=== PATIENT | male | born 1950 | race Caucasian/White ===

== ENCOUNTER 2018-08-19 04:59 | Outpatient (CLI) | payer BC ==
[2018-08-20 10:20] LABS: Hemoglobin 14.5 g/dL (14.0-18.0); Mean Corpuscular HGB CONC 33.2 g/dL (32.0-36.0); Mean Corpuscular Hemoglobin 31.3 pg (27.0-31.0); Mean Corpuscular Volume 94.2 fL (78.0-98.0); Mean Platelet Volume 8.8 fL (7.4-10.4); Platelet Count 119 thou/uL (130-400); RBC Distribution Width 12.6 % (11.5-14.5); Red Blood Cell (RBC) Count 4.64 mill/uL (4.70-6.10); White Blood Cell (WBC) Count 6.2 thou/uL (4.8-10.8)
[2018-08-20 10:26] LABS: INR-International Normal Ratio 2.3; PTT 46.5 SEC (22.9-36.1); Prothrombin Time 24.9 SEC (12.0-14.7)
[2018-08-20 10:51] LABS: Anion Gap 15 mmol/L (10-20); BUN (Urea Nitrogen) 22 mg/dL (8.4-25.7); Calc. Creatinine Clearance 0 mL/min (70-130); Calcium 9.2 mg/dL (7.8-10.44); Carbon Dioxide 23 mmol/L (23-31); Chloride 109 mmol/L (98-107); Estimated GFR-MDRD 88; Glucose 133 mg/dL (80-115); Potassium 4.5 mmol/L (3.5-5.1); Sodium 142 mmol/L (136-145)
== END 2018-08-19 05:00 | disposition home or self-care (01) ==
LOC: LABBT 04:59
PROVIDERS: ATTEND Internal Medicine Cardiovascular Disease
DX: Z01.818 Encounter for other preprocedural examination (principal); I48.91 Unspecified atrial fibrillation; I48.92 Unspecified atrial flutter
CPT/HCPCS: 80048; 85027; 85610; 85730; 93005; 93010

== ENCOUNTER 2018-08-22 05:54 | Observation (INO) | payer BC ==
[2018-08-22] MEDS ORDERED: Heparin 10,000 UNITS/1 ML VIAL ONE ×2 (06:44→08:28)
[2018-08-22 06:52] LABS: INR-International Normal Ratio 1.2; PTT 33.9 SEC (22.9-36.1)
[2018-08-22] MEDS ORDERED: Fentanyl 100 MCG/2 ML VIAL ONE ×2 (06:55→12:34)
[2018-08-22] MEDS ORDERED: Midazolam HCl 2 mg/2 ml Vial ONE (07:47)
[2018-08-22] MEDS ORDERED: Protamine Sulfate 50 MG/5 ML VIAL ONE (08:28)
[2018-08-22] MEDS ORDERED: Hydrocortisone Sod Succ/PF 100 mg/2 ml Vial ONE (08:29)
[2018-08-22] MEDS ORDERED: Heparin 25,000 units/D5W 500 ML ONE (09:19)
[2018-08-22] MEDS ORDERED: Isoproterenol 0.2 MG/1 ML AMP ONE (09:20)
[2018-08-22 12:37] VITALS: BMI 32.1
[2018-08-22] MEDS ORDERED: ALPRAZolam 0.5 MG TAB PO PRN (12:43)
[2018-08-22] MEDS ORDERED: Acetaminophen/Codeine 30-300mg Tablet PO PRN ×2 (12:45)
--- NOTE | 2018-08-22 13:42 | OP ---
DATE OF PROCEDURE: 08/22/2018 PROCEDURE PERFORMED: Electrophysiology study and radiofrequency ablation. REASON FOR PROCEDURE: Mr. Quintanilla is a 67-year-old man with a history of atrial fibrillation/flutter on his chores with increasing palpitations, baseline bradycardia with difficulty to control palpitation symptoms. The patient prefers no long-term antiarrhythmic, which is typical choice due to his bradycardia as well. The patient is anticoagulated with Xarelto. DESCRIPTION OF PROCEDURE: The patient received propofol by Anesthesia specialist. After adequate level of sedation achieved, a standard left and right femoral venous prep was performed. The left and right femoral veins were accessed using ultrasound guidance and a multipurpose needle. On the left side, an 11-Armenian sheath was used to advance the intracardiac echocardiogram probe, which was used to monitor transeptal procedure and hemo-dynamics throughout the procedure. On the left side, a Preface catheter was advanced and that later advanced to DuoDeca catheter into the coronary sinus and the right atrial position. On the right side, two 8-Armenian short sheath was introduced initially through which a ThermoCool SFST catheter was advanced to the right atrium. 3D map of the right atrium was obtained. His bundle and CS were delineated. Burst atrial pacing was performed, able to induce the atrial fibrillation, which later deteriorated atrial flutter. Atrial flutter appeared to have a typical isthmus dependent morphology with proximal to distal CS activation and burst atrial pacing terminated the atrial flutter. Caval tricuspid isthmus ablation was performed, and we achieved transisthmus block with the transisthmus time extended to over 180 milliseconds with longest transisthmus time adjacent to the ablation line suggestive of block. Following that, a transseptal puncture was performed, exchanged right femoral venous sheath to a [place] 45-degree angle transseptal sheath. IV heparin was administered at this point, and ACT was checked throughout the procedure to achieve ACT over 350 throughout the IV heparin boluses and drip. The initial transseptal sheath was cannulated with a wire and it was pulled back , and the second transseptal puncture was performed with the same [place]cano transseptal sheath under fluoroscopic and intracardiac ultrasound guidance. Through the wire, an Agilis sheath was advanced to the left atrium. Through these sheaths, a 20- pole Lasso catheter and the ThermoCool SFST catheter were advanced to the left atrium. 3D map of the left atrium was obtained revealing mild scarring only. A standard pulmonary venous isolation procedure was performed isolating all 4 pulmonary veins. Also, excellent groove and inferior wall ablations were performed to achieve a posterior wall block, which was somewhat suboptimal due to heating over the esophagus. At this point, burst atrial pacing maneuvers were performed, and we did not induce further atrial arrhythmias. Isuprel was administered at this time, and no significant PACs were observed. The pulmonary veins were rechecked and gently ablated. On the right side, also the cavotricuspid isthmus was rechecked and re-ablated. At the end of the case, cardiac silhouette did not seem to change. Sheaths were exchanged to a short sheath and a basket closure was performed under ultrasound guidance. The total number of ablations, 38 ablations with total duration of 26 minutes 56 seconds at 40 barrera. Basic EP study was also performed with baseline rhythm of sinus rhythm at 1355 milliseconds, NJ 114, QRS 90, QT 423, AH 90 milliseconds, HV 39 milliseconds. Sinus node recovery time 1323 corrected to 100 milliseconds with AV Wenckebach cycle length was 360 milliseconds. AV savi ERP was 690/240 milliseconds. Retrograde Wenckebach cycle was 300 milliseconds during LV pacing. Concentric retrograde VA conduction was seen. No definite dual AV node physiology was observed, initially atrial flutter, again typical as detailed above was induced. In the end of the case no atrial flutter was induced. CONCLUSION: 1. Inducible atrial flutter fibrillation and flutter both. 2. Atrial flutter likely typical isthmus dependent morphology. 3. Radiofrequency ablation of the cavotricuspid isthmus was performed admitting transisthmus conduction. 4. Standard pulmonary venous isolation and posterior wall ablation performed as above. PLAN: Resume anticoagulation. Monitor for recurrent arrhythmias. Job ID: [id number] [facility]
[2018-08-22] MEDS ORDERED: Dexamethasone 20 MG/5 ML VIAL ONE (15:00)
[2018-08-22] MEDS ORDERED: Ondansetron PF 4 MG/2 ML Vial ONE (15:00)
[2018-08-22] MEDS ORDERED: Lidocaine 1% PF 5 ML VIAL ONE (15:00)
[2018-08-22] MEDS ORDERED: PROPOFOL 200 MG/20 ML VIAL ONE (15:00)
[2018-08-22] MEDS ORDERED: Glycopyrrolate 0.2 MG/ML 5 ML SYRINGE ONE (15:00)
[2018-08-22] MEDS ORDERED: ePHEDrine 50 MG/ML VIAL ONE (15:00)
[2018-08-22] MEDS ORDERED: Heparin 30,000 units/30 ml VIAL ONE (15:00)
[2018-08-22] MEDS ORDERED: Rocuronium Bromide 10 MG/ML (10ML VIAL) ONE (15:00)
[2018-08-22] MEDS ORDERED: diphenhydrAMINE 50 MG/ML VIAL ONE (15:00)
[2018-08-22] MEDS ORDERED: PHENYLEPHRINE-NS 100 MCG/ML 10 ML SYRINGE ONE (15:00)
[2018-08-22] MEDS: Sucralfate 1 GM TAB PO SCH ×2 (17:10→20:20)
[2018-08-22] MEDS ORDERED: Escitalopram Oxalate 20 mg Tablet PO SCH (21:00)
[2018-08-22] MEDS ORDERED: Mirtazapine 15 MG TAB PO SCH (21:00)
[2018-08-23] MEDS ORDERED: Levothyroxine Sodium 25 MCG TAB PO SCH (06:00)
[2018-08-23] MEDS ORDERED: Levothyroxine Sodium 25 MCG TAB ONE (06:10)
[2018-08-23] MEDS ORDERED: Rivaroxaban 10 MG TAB PO SCH (09:00)
[2018-08-23] MEDS ORDERED: Rosuvastatin 10 MG TAB PO SCH (09:00)
[2018-08-23 09:09] VITALS: BP 110/61; TEMP 97.4
[2018-08-23] MEDS: Sucralfate 1 GM TAB PO SCH (10:00)
--- NOTE | 2018-08-24 03:06 | DIS ---
DATE OF ADMISSION: 08/22/2018 DATE OF DISCHARGE: 08/23/2018 DIAGNOSIS: Atrial fibrillation and atrial flutter. PROCEDURE PERFORMED: Includes electrophysiology study and radiofrequency ablation, 26 minutes of RF energy lesions delivered. The patient was inducible for both atrial fibrillation and atrial flutter. He underwent cavotricuspid isthmus modification ablation for his typical atrial flutter and also isolation of the 4 pulmonary veins in posterior wall. He has done well since his ablation without any complications or medical instability. He is ambulating. Groin sites are stable. He is tolerating p.o. intake. His vital signs are stable. He is not having shortness of breath or chest pain. SUBJECTIVE: Denies heart racing, palpitations, chest pain, pressure, syncope, near syncope, stroke, stroke-like symptoms, nausea, vomiting, diarrhea, bleeding in the groin sites. OBJECTIVE: VITAL SIGNS: Temperature 97.4, pulse 67, blood pressure 110/61, respirations 15, oxygen is 96% on room air. GENERAL: The patient is alert and oriented. Speech is clear. Affect is appropriate. NECK: Supple without jugular venous distention. LUNGS: Clear to auscultation. HEART: Rate is irregular with crisp S1 and S2. ABDOMEN: Soft, nontender without palpable masses. Bilateral groin sites are stable without hematoma or bleeding complications. EXTREMITIES: Warm and dry to touch without clubbing, cyanosis, or edema. NEUROLOGIC: Grossly intact. DATABASE: EKG and telemetry show sinus rhythm. There have been no episodes of atrial fibrillation, atrial flutter or even atrial ectopy seen. DISCHARGE INSTRUCTIONS: The patient received detailed packet from [facility], post ablation instructions. Stressed the importance of no lifting more than 5 to 10 pounds for the next week. No soaking baths. Light activity only for 7 days, then may resume gradually and as tolerated. He will follow up in 6 weeks for routine appointment or sooner if symptoms dictate. DISCHARGE MEDICATIONS: 1. Rosuvastatin 10 mg daily. 2. Xarelto 20 mg q.p.m. 3. Mirtazapine 1 tab q.p.m. 4. Metoprolol succinate 25 mg q.a.m. 5. Synthroid 25 mcg daily. 6. Lexapro 20 mg q.p.m. 7. Xanax 0.5 mg t.i.d. p.r.n. New prescriptions; 1. Sucralfate 1 g p.o. before meals and at bedtime x2 weeks. 2. Pantoprazole 40 mg p.o. daily x30 days. 3. Lasix 40 mg p.o. p.r.n. shortness of breath. 4. Potassium chloride 20 mEq p.o. p.r.n. to be taken only with Lasix as needed. CONDITION AT DISCHARGE: Stable. Job ID: [id number] [facility]
== END 2018-08-23 10:48 | disposition home or self-care (01) ==
LOC: CCL 05:54 → 2SW 12:24
PROVIDERS: ADMIT Internal Medicine Cardiovascular Disease; ATTEND Internal Medicine Cardiovascular Disease
PROC: 4A023FZ Measurement of Cardiac Rhythm, Percutaneous Approach (ICD-10-PCS; principal; 2018-08-23)
PROC: 4A0234Z Measurement of Cardiac Electrical Activity, Percutaneous Approach (ICD-10-PCS; 2018-08-23)
PROC: 02583ZZ Destruction of Conduction Mechanism, Percutaneous Approach (ICD-10-PCS; 2018-08-23)
DX: I48.0 Paroxysmal atrial fibrillation (principal); I48.92 Unspecified atrial flutter; E03.9 Hypothyroidism, unspecified; E78.00 Pure hypercholesterolemia, unspecified; F41.9 Anxiety disorder, unspecified; G47.30 Sleep apnea, unspecified; Z79.899 Other long term (current) drug therapy
CPT/HCPCS: 76942; 85347; 85610; 85730; 93005; 93010; 93613; 93621; 93623; 93653; 93656; 93662; C1731; C1732; C1759; C1769; G0378; J1100; J1200; J1644; J1720; J2001; J2250; J2405; J2704; J2720; J3010; J3490

== ENCOUNTER 2019-02-11 09:36 | Outpatient (CLI) | payer BC ==
--- NOTE | 2019-02-11 10:19 | RAD ---
Abdomen 2 views HISTORY: Abdominal pain. Diarrhea. FINDINGS: Gas and stool over the colon and rectum. No differential air-fluid levels or evidence of fr ee subdiaphragmatic gas. There are degenerative changes of the hips and lumbar spine. IMPRESSION: No abnormalities are demonstrated.
== END 2019-02-11 09:37 | disposition home or self-care (01) ==
LOC: BICRAD 09:36
PROVIDERS: ATTEND Internal Medicine
DX: R19.7 Diarrhea, unspecified (principal)
CPT/HCPCS: 36415; 74019; 80053; 80061; 81001; 83036; 83540; 84439; 84443; 85025

== ENCOUNTER 2019-04-08 06:45 | Outpatient (CLI) | payer BC ==
[2019-04-08 16:28] LABS: INR-International Normal Ratio 1.4; PTT 33.8 SEC (22.9-36.1); Prothrombin Time 16.6 SEC (12.0-14.7)
[2019-04-08 16:29] LABS: Hemoglobin 13.6 g/dL (14.0-18.0); Mean Corpuscular HGB CONC 32.8 g/dL (32.0-36.0); Mean Corpuscular Volume 91.5 fL (78.0-98.0); Mean Platelet Volume 8.5 fL (7.4-10.4); Platelet Count 118 thou/uL (130-400); RBC Distribution Width 12.5 % (11.5-14.5); Red Blood Cell (RBC) Count 4.52 mill/uL (4.70-6.10); White Blood Cell (WBC) Count 6.7 thou/uL (4.8-10.8)
[2019-04-08 16:40] LABS: Anion Gap 10 mmol/L (10-20); BUN (Urea Nitrogen) 19 mg/dL (8.4-25.7); Calc. Creatinine Clearance 0 mL/min (70-130); Calcium 8.9 mg/dL (7.8-10.44); Carbon Dioxide 25 mmol/L (23-31); Chloride 109 mmol/L (98-107); Estimated GFR-MDRD Greater than 90; Glucose 134 mg/dL (80-115); Potassium 4.2 mmol/L (3.5-5.1); Sodium 140 mmol/L (136-145)
== END 2019-04-08 06:46 | disposition home or self-care (01) ==
LOC: LABBT 06:45
PROVIDERS: ATTEND Internal Medicine Cardiovascular Disease
DX: Z01.818 Encounter for other preprocedural examination (principal); I48.91 Unspecified atrial fibrillation
CPT/HCPCS: 80048; 85027; 85610; 85730; 93005; 93010

== ENCOUNTER 2019-04-11 09:20 | Observation (INO) | payer BC ==
[2019-04-08 15:49] VITALS: BMI 32.1
[2019-04-11] MEDS ORDERED: PROPOFOL 200 MG/20 ML VIAL ONE (10:51)
[2019-04-11] MEDS ORDERED: Dexamethasone 20 MG/5 ML VIAL ONE (10:51)
[2019-04-11] MEDS ORDERED: Rocuronium Bromide 10 MG/ML (10ML VIAL) ONE (10:51)
[2019-04-11] MEDS ORDERED: Ondansetron PF 4 MG/2 ML Vial ONE (10:51)
[2019-04-11] MEDS ORDERED: Heparin 10,000 UNITS/1 ML VIAL ONE ×2 (11:22→13:33)
[2019-04-11] MEDS ORDERED: Heparin (Artline) 1,000 ML ONE (11:23)
[2019-04-11] MEDS ORDERED: Heparin (Artline) 500 ML ONE ×2 (11:23→14:16)
[2019-04-11] MEDS ORDERED: Lidocaine 1% (PF) 30 ML VIAL ONE (11:23)
[2019-04-11] MEDS ORDERED: Isoproterenol 0.2 MG/1 ML AMP ONE (11:23)
[2019-04-11] MEDS ORDERED: Fentanyl 100 MCG/2 ML VIAL ONE ×2 (11:57→15:44)
[2019-04-11] MEDS ORDERED: Phenylephrine HCL 10 MG/ML VIAL ONE (11:58)
[2019-04-11] MEDS ORDERED: Heparin 25,000 units/D5W 500 ML ONE (12:03)
[2019-04-11] MEDS ORDERED: Protamine Sulfate 50 MG/5 ML VIAL ONE (15:04)
[2019-04-11] MEDS ORDERED: ALPRAZolam 0.5 MG TAB PO PRN (16:26)
[2019-04-11] MEDS ORDERED: HYDROcodone/Acetaminophen 5/325 mg Tablet PO PRN ×2 (16:30)
[2019-04-11] MEDS ORDERED: Acetaminophen/Codeine 30-300mg Tablet PO PRN ×2 (16:30)
[2019-04-11] MEDS ORDERED: Rivaroxaban 10 MG TAB PO SCH (18:00)
--- NOTE | 2019-04-11 19:46 | CON ---
DATE OF CONSULTATION: 04/11/2019 TIME OF ASSESSMENT: 1800 hours. REASON FOR CONSULTATION: Medical management. HISTORY OF PRESENT ILLNESS: Mr. Quintanilla is a 68-year-old gentleman who has a history of atrial fibrillation/atrial flutter, who has undergone radiofrequency ablation earlier today. He is being kept for continuous cardiac monitoring/observation overnight. The patient denies having any complaints at this present time. He is found eating dinner without any associated nausea or vomiting. Denies having any chest pain, palpitations, or shortness of breath. No headaches or dizziness. All other review of systems are negative. PAST MEDICAL HISTORY: 1. Atrial flutter/atrial fibrillation. 2. LVEF 55% to 60% with no significant valvular heart disease on echo done in April 2018. 3. Negative stress test in February 2016. 4. Hypothyroidism. 5. On chronic anticoagulation with Xarelto. 6. Sleep apnea, on CPAP. 7. Hypercholesterolemia. 8. Anxiety. PAST SURGICAL HISTORY: 1. Ankle surgery. 2. Radiofrequency ablation, 04/11/2019. 3. Previous RFA in August 2018 for typical atrial flutter. SOCIAL HISTORY: The patient reports drinking one alcoholic beverage a day. Denies any tobacco use. ALLERGIES: NO KNOWN DRUG ALLERGIES. CURRENT MEDICATIONS: 1. Ascorbic acid. 2. Cholecalciferol. 3. Flecainide. 4. Levothyroxine. 5. Metoprolol. 6. Mirtazapine. 7. Multivitamin. 8. [place]-3 fatty acids/fish oil. 9. Xarelto. 10. Rosuvastatin. 11. Sertraline. 12. Xanax. PHYSICAL EXAMINATION: GENERAL: The patient appears well-developed, well-nourished, is in no acute distress. VITAL SIGNS: Temperature 98.6, pulse 50, respirations 16, O2 saturation 97%, and blood pressure 146/77. HEENT: Normocephalic and atraumatic. Pupils are equal, round, and reactive to light. Sclerae without icterus. Oropharynx is clear. NECK: Supple. LUNGS: Clear to auscultation bilaterally without any wheezes, rales, or rhonchi. CARDIAC: Regular rate and rhythm without audible murmurs, rubs, or gallops. ABDOMEN: Soft, nontender, nondistended. Normoactive bowel sounds present. No guarding or rigidity. No renal angle tenderness. EXTREMITIES: No lower leg swelling or edema. NEUROLOGIC: Alert and oriented x3. SKIN: Warm and dry. IMPRESSION AND PLAN: Mr. Quintanilla is a 68-year-old gentleman who is status post radiofrequency ablation for atrial fibrillation, who has been referred to us for medical management of the following. 1. Hypothyroidism. Levothyroxine has been restarted. 2. Hyperlipidemia. Home medications restarted. 3. Obstructive sleep apnea. The patient does not have CPAP with him, does not know settings. Currently on 2 L of oxygen by nasal cannula. 4. Anxiety/depression. Home medication restarted. 5. Gastrointestinal prophylaxis with famotidine. 6. Deep venous thrombosis prophylaxis. The patient is on chronic anticoagulation with Xarelto. 7. Code status full. Surrogate decision maker is his , Karishma Quintanilla. 8. Atrial fibrillations, status post radiofrequency ablation. Continue management and disposition as per Dr. Alvarado. The patient's case was discussed with attending who agrees upon care as described above. We will continue to follow this patient with you. Thank you for this consultation. Job ID: [id number]
[2019-04-11] MEDS ORDERED: Mirtazapine 30 MG TAB PO SCH (21:00)
[2019-04-11] MEDS ORDERED: ALPRAZolam 0.25 MG TAB PO PRN (21:24)
[2019-04-11] MEDS: Famotidine 20 MG TAB PO SCH (21:39)
--- NOTE | 2019-04-11 22:09 | OP ---
DATE OF PROCEDURE: 04/11/2019 PROCEDURE PERFORMED: Electrophysiology study and radiofrequency ablation. ADDITIONAL REFERRING PHYSICIAN: Melanie Talley MD. REASON FOR PROCEDURE: Mr. Quintanilla is a 68-year-old gentleman with history of paroxysmal atrial fibrillation and flutter, history of pulmonary venous isolation procedure on 08/12/2018, history of preserved LVEF, it is 55% to 60% by 2D echocardiogram in April 2018. He had recurrent palpitations with admission and marked bradycardia was noted on metoprolol and flecainide. He is here for a redo-pulmonary venous isolation procedure. DESCRIPTION OF PROCEDURE: The patient received general anesthesia by Anesthesia specialist. After adequate level of sedation achieved, the left and right femoral venous area was prepped, draped, and anesthetized using subcutaneous lidocaine. Under ultrasound guidance, both femoral veins were cannulated x2 on the left side, an 11-Khmer sheath was used to advance an intracardiac echocardiogram probe to the right atrium to monitor the transeptal procedure, pericardial space and the catheter manipulation. Also on the left side, a Preface sheath was used to advance a duo-Deca catheter in the right atrium in CS position. Following that, on the right side two 8-Khmer short sheaths were introduced through which a ThermoCool SFST catheter advanced to the right atrium and 3D map of the right atrium, His bundle and CS positions were delineated. Following that, the right-sided sheaths were exchanged to SL1 transeptal sheath. IV heparin was initiated with a bolus and then drip fashion and adjusted throughout the procedure to keep ACT over 350. Transseptal puncture was performed with the help of a [place] powered needle under intracardiac ultrasound and fluoroscopic guidance. Through the SL1 sheaths, a ThermoCool SFST ablation catheter was advanced to the left atrium. Also, a 20-pole Lasso catheter was advanced to the left atrium. A 3D map of the left atrium was obtained. Baseline EP study was performed with the following findings. Baseline rhythm was sinus rhythm with cycle length 420 milliseconds, UT 134, QRS 43 milliseconds, QT 474 milliseconds, HV 42 milliseconds. Sinus node recovery time was normal, atrial ERP was 600/280 milliseconds. AV Wenckebach cycle length was 380 milliseconds. Retrograde Wenckebach cycle length was from LV pacing was 400 milliseconds. Reconnection on the right inferior, right superior and left superior veins were seen. Also the posterior wall not completely isolated. Radiofrequency ablation lesions delivered a total of 39 lesions at total duration 16 minutes at 40 barrera delivered to achieve isolation of all 4 pulmonary veins as well as the posterior wall. At the end of the case, High dose Isuprel stanrted and any reconnections were re-ablated. No atrial arrhythmias were inducible. No significant PAC burden was seen on Isuprel. Catheter was withdrawn from the left atrium and heparin was stopped. The long sheaths were exchanged for short sheaths and Vascade closure was performed in all 4 vascular access sites. A protime was also delivered before this reversed IV heparin effect. The cardiac silhouette did not change significantly throughout the procedure and an intracardiac ultrasound demonstrated no significant pericardial effusion pre and post procedure. CONCLUSION: 1. Reconnection of the right sided pulmonary veins were seen with successful re-isolation. Additional lesions delivered in the left superior pulmonary venous areas in a posterior wall achieving re-isolation. 2. No evidence of accessory pathway. 3. Normal atrioventricular savi and His-Purkinje function pre and post procedure. 4. No re-inducible atrial arrhythmias. PLAN: Resume anticoagulation and monitor for recurrent atrial arrhythmias. Stop flecainide. Job ID: [id number] [facility]
[2019-04-12 05:22] LABS: #Basophils 0.1 thou/uL (0.0-0.2); #Lymphocytes 0.7 thou/uL (1.20-3.40); #Monocytes 0.5 thou/uL (0.11-0.59); #Neutrophils 8.8 thou/uL (1.40-6.50); %Basophils 0.6 % (0.0-1.0); %Eosinophils 0.1 % (0.0-10.0); %Lymphocytes 6.6 % (21.0-51.0); %Monocytes 5.1 % (0.0-10.0); %Neutrophils 87.6 % (42.0-75.0); Hemoglobin 13.1 g/dL (14.0-18.0); Mean Corpuscular HGB CONC 31.4 g/dL (32.0-36.0); Mean Corpuscular Volume 92.4 fL (78.0-98.0); Mean Platelet Volume 9.1 fL (7.4-10.4); Platelet Count 135 thou/uL (130-400); RBC Distribution Width 12.6 % (11.5-14.5); Red Blood Cell (RBC) Count 4.52 mill/uL (4.70-6.10)
[2019-04-12 05:43] LABS: Anion Gap 12 mmol/L (10-20); BUN (Urea Nitrogen) 17 mg/dL (8.4-25.7); Calc. Creatinine Clearance 145 mL/min (70-130); Calcium 8.8 mg/dL (7.8-10.44); Carbon Dioxide 24 mmol/L (23-31); Chloride 108 mmol/L (98-107); Estimated GFR-MDRD Greater than 90; Glucose 168 mg/dL (80-115); Potassium 4.3 mmol/L (3.5-5.1); Sodium 140 mmol/L (136-145)
[2019-04-12] MEDS ORDERED: Levothyroxine Sodium 25 MCG TAB PO SCH (06:00)
[2019-04-12] MEDS: Famotidine 20 MG TAB PO SCH (08:39)
[2019-04-12] MEDS ORDERED: Ascorbic Acid 500 mg Chewable Tablet PO SCH (09:00)
[2019-04-12] MEDS ORDERED: Rivaroxaban 10 MG TAB PO SCH (09:00)
[2019-04-12] MEDS ORDERED: Fish Oil 1,000 MG CAP PO SCH (09:00)
[2019-04-12] MEDS ORDERED: Multivit, Therapeutic 1 TAB PO SCH (09:00)
[2019-04-12] MEDS ORDERED: Rosuvastatin 20 MG TAB PO SCH (09:00)
[2019-04-12 12:11] VITALS: BP 139/69; TEMP 97.3
[2019-04-12] MEDS ORDERED: Alprazolam [Xanax Xr] 0.5 MG PO SCH (21:00)
--- NOTE | 2019-04-12 23:53 | DIS ---
DATE OF ADMISSION: 04/11/2019 DATE OF DISCHARGE: 04/12/2019 REASON FOR HOSPITALIZATION: Elective ablation of atrial fibrillation. SIGNIFICANT FINDINGS: The patient is found to be in atrial fibrillation, who required radiofrequency ablation. PROCEDURES PERFORMED AND TREATMENTS RENDERED: The patient was taken to the operating room by Dr. Alvarado on 04/11/2019-please see full operative report for details. The patient successfully underwent electrophysiology study with radiofrequency ablation. There was no appreciated intraoperative or postoperative complications. The patient was monitored on continuous telemetry postoperatively and had a good recovery. The patient's cardiac regimen was titrated appropriately by cargo service agent. The patient was recommended safe for discharge by cargo service agent on 04/12/2019 with close followup in the outpatient setting. CONDITION ON DISCHARGE: Stable. SPECIFIC INSTRUCTIONS FOR THE PATIENT/FAMILY: 1. The patient is recommended to take all medications as directed. 2. The patient is recommended to follow up with Cardiology in the next 1 to 2 weeks. 3. The patient is recommended to follow up with primary care physician in the next 1 to 2 weeks. 4. The patient is recommended to return to acute care hospital immediately if signs or symptoms return, worsen, or any other new symptoms occur. DISCHARGE MEDICATIONS: Please see full discharge medication list for details. 1. Xarelto 20 mg one tablet p.o. at bedtime. 2. Rosuvastatin 20 mg one tablet p.o. daily. 3. Sertraline 100 mg p.o. at bedtime. 4. Xanax 0.25 mg p.o. t.i.d. p.r.n. panic attack. 5. [place]-3 fatty acids. 6. Fish oil 1000 mg one capsule p.o. daily. 7. Multivitamin one tablet p.o. daily. 8. Mirtazapine 30 mg one tablet p.o. at bedtime. 9. Synthroid 25 mcg one tablet p.o. q.a.m. 10. Vitamin D3 of 1000 units one tablet p.o. daily. 11. Vitamin C 1000 units one tablet p.o. daily. Greater than 35 minutes spent coordinating care and discharge process for this patient. Job ID: [id number]
--- NOTE | 2019-04-15 10:55 | PRG ---
DATE OF SERVICE: 04/12/2019 SUBJECTIVE: Mr. Quintanilla seems to be doing very well after his pulmonary venous re-isolation procedure yesterday. He has no chest pain. No fever, chills, or cough. Groin sites are without reaction and there is no palpitation. OBJECTIVE DATA: VITAL SIGNS: Blood pressure is 139/69, heart rate 51, respirations 16, and temperature 97.3 degrees Fahrenheit. GENERAL: Alert and oriented man, with elevated BMI, in no apparent distress. NECK: Supple. Jugular veins not distended. CHEST: Coarse without crackles. HEART: Sounds are regular to rate and rhythm. No murmur, gallop, or rub is appreciated. ABDOMEN: Benign. Bowel sounds positive. EXTREMITIES: Lower extremity without edema, clubbing, or cyanosis. Both femoral venous catheter insertion sites are without reaction. LABORATORY AND DIAGNOSTIC STUDIES: Database, telemetry strips reviewed revealing sinus rhythm without atrial fibrillation or significant ectopy. EKG from April 12, 2019, reveals sinus bradycardia 47 beats per minute. LABORATORY DATA: Hemoglobin is 13.1, white cells 10, platelet count is 135. Electrolytes normal range. BUN is 17 and creatinine 0.77. ASSESSMENT AND PLAN: Mr. Quintanilla is a pleasant 68-year-old man with prior history of paroxysmal atrial fibrillation, who had prior pulmonary venous isolation procedure on 08/12/2018 and had recurrent paroxysms and eventually underwent redo-pulmonary venous isolation procedure yesterday. He had re-isolation of the right-sided pulmonary veins. Also, additional lesions were placed in the superior and inferior lines on the posterior wall to re-isolate the posterior wall as well. A total of 60 minutes of radiofrequency energy was delivered at 40 barrera. No issues were noted. Subsequent day, the patient is stable. Rhythm remained sinus bradycardia. PLAN: Discussed with Dr. Dunn about discharge. He appears to be stable. I will discharge him on a routine 2 week supply of Protonix and Carafate, also p.r.n. Lasix and potassium. He is to stop his flecainide and metoprolol at this time asymptomatic bradycardia. Routine followup in 6 weeks will be arranged. The patient is encouraged for a followup with any kind of new issues, which I educated him about. Job ID: [id number]
== END 2019-04-12 13:51 | disposition home or self-care (01) ==
LOC: CCL 09:20 → 2SW 17:19
PROVIDERS: ADMIT Internal Medicine Cardiovascular Disease; ATTEND Internal Medicine Cardiovascular Disease
PROC: 02583ZZ Destruction of Conduction Mechanism, Percutaneous Approach (ICD-10-PCS; principal; 2019-04-12)
DX: I48.0 Paroxysmal atrial fibrillation (principal); I48.92 Unspecified atrial flutter; E03.9 Hypothyroidism, unspecified; G47.33 Obstructive sleep apnea (adult) (pediatric); F41.9 Anxiety disorder, unspecified; E78.5 Hyperlipidemia, unspecified; F32.9 Major depressive disorder, single episode, unspecified; Z79.01 Long term (current) use of anticoagulants; Z79.899 Other long term (current) drug therapy; Z99.89 Dependence on other enabling machines and devices
CPT/HCPCS: 36415; 76942; 80048; 85025; 85347; 93005; 93010; 93613; 93623; 93656; 93662; C1731; C1732; C1759; C1769; G0378; J1100; J1644; J2001; J2370; J2405; J2704; J2720; J3010

== ENCOUNTER 2019-12-10 07:20 | Outpatient (CLI) | payer BC, OTHER ==
[2019-12-10 11:17] LABS: Hemoglobin 14.6 g/dL (14.0-18.0); Mean Corpuscular HGB CONC 34.2 g/dL (32.0-36.0); Mean Corpuscular Volume 93.7 fL (78.0-98.0); Mean Platelet Volume 8.6 fL (7.4-10.4); Platelet Count 121 thou/uL (130-400); RBC Distribution Width 12.6 % (11.5-14.5); Red Blood Cell (RBC) Count 4.56 mill/uL (4.70-6.10); White Blood Cell (WBC) Count 5.1 thou/uL (4.8-10.8)
[2019-12-10 11:27] LABS: PTT 28.8 sec (22.9-36.1); Prothrombin Time 13.5 sec (12.0-14.7)
[2019-12-10 11:59] LABS: Bacteria/HPF None Seen HPF (None Seen); Bilirubin Negative (Negative); Blood, Urine Negative (Negative); Clarity Clear (Clear); Glucose, Urine (Dipstick) Normal (Negative); Ketone, Urine Negative (Negative); Leukocyte Negative Leu/uL (Negative); Nitrite Negative (Negative); Protein, Urine (Dipstick) Negative (Neg-Trace); RBC/HPF 0-3 HPF (0-3); Specific Gravity, Urine 1.015 (1.002-1.036); Squamous Epithelial None Seen HPF (0-3); Urobilinogen Normal mg/dL (Less than 2); WBC/HPF 0-3 HPF (0-3)
[2019-12-10 12:23] LABS: Anion Gap 15 mmol/L (10-20); BUN (Urea Nitrogen) 20 mg/dL (8.4-25.7); Calc. Creatinine Clearance 0 mL/min (70-130); Calcium 8.8 mg/dL (7.8-10.44); Carbon Dioxide 25 mmol/L (23-31); Chloride 107 mmol/L (98-107); Estimated GFR-MDRD Greater than 90; Glucose 139 mg/dL (80-115); Potassium 4.7 mmol/L (3.5-5.1); Sodium 142 mmol/L (136-145)
[2019-12-10 17:56] LABS: SARS-CoV-2 MS2 Positive; SARS-CoV-2 N Gene Negative; SARS-CoV-2 S Gene Negative; SARS-CoV-2 by NAA Not Detected (NotDetected); SARS-CoV-2 orf1ab Negative
--- NOTE | 2019-12-11 07:03 | EKG ---
Test Reason : Blood Pressure : / mmHG Vent. Rate : 051 BPM Atrial Rate : 051 BPM P-R Int : 128 ms QRS Dur : 092 ms QT Int : 444 ms P-R-T Axes : -07 080 021 degrees QTc Int : 409 ms Sinus bradycardia Inferior infarct , age undetermined Cannot rule out Anterior infarct , age undetermined NS T-wave changes Abnormal ECG No previous ECGs available Confirmed by DR. Chantell ABDUL ([id number]) on 12/11/2019 7:03:39 AM Referred By: MARBELLA Confirmed By:DR. Chantell ABDUL
== END 2019-12-10 07:21 | disposition home or self-care (01) ==
LOC: LABBT 07:20
PROVIDERS: ATTEND Urology
DX: Z01.818 Encounter for other preprocedural examination (principal); N40.1 Benign prostatic hyperplasia with lower urinary tract symptoms; R39.12 Poor urinary stream; Z20.828 Contact with and (suspected) exposure to other viral communicable diseases
CPT/HCPCS: 80048; 81001; 85027; 85610; 85730; 87086; 87635; 93005; 93010; U0003

== ENCOUNTER 2019-12-13 05:53 | Day surgery (SDC) | payer BC ==
[2019-12-10 13:49] VITALS: BMI 30.8
[2019-12-13] MEDS ORDERED: Levofloxacin 500 mg/D5W 100 ml Premix Bag ONE ×2 (06:38→09:41)
[2019-12-13] MEDS ORDERED: B & O ONE (07:49)
--- NOTE | 2019-12-13 08:38 | OP ---
DATE OF PROCEDURE: 12/13/2019 SERVICE: Urology. PREOPERATIVE DIAGNOSIS: Benign prostatic hyperplasia with obstruction. POSTOPERATIVE DIAGNOSIS: Benign prostatic hyperplasia with obstruction. PROCEDURE PERFORMED: UroLift with 4 implants. INDICATIONS FOR PROCEDURE: Mr. Quintanilla is a 69-year-old white male, who initially came to see me for BPH and urinary complaints. His workup demonstrated bilateral obstructing lobes on the prostate. The patient did not want to take medication secondary to its side effects. We discussed the UroLift procedure, which he was very interested in. He is now coming to the operating room for this procedure after discussion of risks and benefits. DESCRIPTION OF PROCEDURE: After identification of armband and verification of consent, the patient was brought back to the operating room, where he underwent total intravenous anesthesia. He was then placed in a dorsal lithotomy position and prepped and draped in the usual sterile fashion. After appropriate time-out, a lubricated 21-Sami rigid cystoscope with visual obturator was passed through the urethra into the bladder. The visual obturator was switched out for the UroLift implant device. The UroLift was initially positioned at the patient's left bladder neck and then withdrawn to the base of the bladder away from the bladder neck. Compression was achieved with anterior lift approximately 20 degrees and then the safety release was performed. The blue trigger was squeezed to deploy the Nitinol needle. Tension was set and the capsular tab placed with a saleem trigger. The UroLift was then advanced forward until the white line could be seen in the keyhole and then the back blue release to deploy the urethral end piece was performed. This resulted in nice lateral compression of the patient's left base of the prostate. This was then repeated at the right base, at the left apex and right apex as well. This resulted in nice opening of the prostate. At this point, I did not feel there were any additional implants that were really necessary. The prostate channel appeared wide open. The UroLift was then removed, and an 18-Sami 3-way Chan catheter was placed into the patient's bladder. 10 mL of sterile water was placed into the balloon. This was left to gravity drainage. B and O suppositories were placed in the patient's rectum. He was then awakened, taken to PACU for recovery in stable condition. COMPLICATIONS: None. ESTIMATED BLOOD LOSS: Minimal. RETAINED TUBES AND DRAINS: 18-Sami Chan catheter. SPECIMENS: None. IMPLANTS USED: Four. DISPOSITION: The patient will undergo a void trial. If his urine is clear, we will then plan a followup in approximately 1 to 2 weeks for postop check. Job ID: [id number]
[2019-12-13] MEDS ORDERED: PROPOFOL 200 MG/20 ML VIAL ONE (10:23)
[2019-12-13] MEDS ORDERED: Phenazopyridine HCl 100 MG TAB ONE ×2 (11:00→11:05)
[2019-12-13] MEDS ORDERED: Oxybutynin 5 MG TAB ONE (11:00)
== END 2019-12-13 13:45 | disposition home or self-care (01) ==
LOC: SDC 05:53
PROVIDERS: ATTEND Urology
PROC: 0T7D8DZ Dilation of Urethra with Intraluminal Device, Via Natural or Artificial Opening Endoscopic (ICD-10-PCS; principal; 2019-12-13)
DX: N40.1 Benign prostatic hyperplasia with lower urinary tract symptoms (principal); N13.8 Other obstructive and reflux uropathy; R39.12 Poor urinary stream; R35.0 Frequency of micturition; M19.90 Unspecified osteoarthritis, unspecified site; E03.9 Hypothyroidism, unspecified; E78.00 Pure hypercholesterolemia, unspecified; F41.9 Anxiety disorder, unspecified; Z79.01 Long term (current) use of anticoagulants; Z79.899 Other long term (current) drug therapy
CPT/HCPCS: C1889; J1956; J2704

== ENCOUNTER 2023-12-11 15:29 | Outpatient (CLI) | payer MEDICARE | END 2023-12-11 15:30 | disposition home or self-care (01) | LOC: SCSRAD 15:29 | PROVIDERS: ATTEND Internal Medicine | DX: M54.50 Low back pain, unspecified (principal); M25.551 Pain in right hip; M25.552 Pain in left hip; M47.816 Spondylosis without myelopathy or radiculopathy, lumbar region | CPT/HCPCS: 72100; 72170; 72220 ==